=== PATIENT | female | born 1980 | race Two or more races ===

== ENCOUNTER 2019-08-10 06:17 | Day surgery (SDC) | payer MEDICAID ==
[2019-08-10] VITALS (12 sets, daily range): BP systolic 124–144; BP diastolic 59–80
[~2019-08-10] VITALS: Ht 167.6 cm; Wt 123.4 kg
[~2019-08-10 06:17] MED LIST: CLINDAMYCIN/D5W 900mg/50ml 50 ML IV ONE; NO HOME MEDS; famotidine 10mg tablet PO ONE; ringers solution, lacted 1,000 ML IV SCH
[2019-08-10] MEDS ORDERED: LIDOcaine 1% (10mg/ml) 2ml vial ONE (06:52)
[2019-08-10 07:38] LABS: BASOPHILS # (AUTO) 0.1 X10'3 (0-0.2); BASOPHILS % (AUTO) 0.7 % (0-1); EOSINOPHILS # (AUTO) 0.3 X10'3 (0-0.9); EOSINOPHILS % (AUTO) 3.4 % (0-6); LYMPHOCYTES # (AUTO) 2.8 X10'3 (1.1-4.8); LYMPHOCYTES % (AUTO) 35.8 % (21-51); MEAN CORPUSCULAR HEMOGLOBIN 29.1 PG (27.0-31.0); MEAN CORPUSCULAR HGB CONC 33.5 g/dL (33.0-36.5); MEAN CORPUSCULAR VOLUME 87.1 FL (78-98); MEAN PLATELET VOLUME 10.7 FL (7.4-10.4); MONOCYTES # (AUTO) 0.5 X10'3 (0-0.9); MONOCYTES % (AUTO) 6.2 % (2-12); NEUTROPHILS # (AUTO) 4.2 X10'3 (1.8-7.7); NEUTROPHILS % (AUTO) 53.9 % (42-75); PRE OP HEMATOCRIT 41.3 % (35.0-45.0); PRE OP HEMOGLOBIN 13.8 g/dL (12.0-16.0); PRE OP PLATELET COUNT 129 X10'3 (140-440); RED BLOOD COUNT 4.74 X10'6 (4.20-5.60); RED CELL DISTRIBUTION WIDTH 14.4 % (11.5-14.5)
[2019-08-10 08:02] LABS: HCG SERUM QL NEGATIVE
[2019-08-10 08:22] LABS: LARGE PLATELETS FEW; PLATELET ESTIMATE DECREASED
[2019-08-10] MEDS ORDERED: ringers solution, lacted 1,000 ML IV SCH (08:22)
[2019-08-10] MEDS ORDERED: ondansetron/PF 4mg/2ml inj IV PRN (08:25)
[2019-08-10] MEDS ORDERED: labetalol 20mg/4ml (5mg/ml) syringe IV PRN (08:25)
[2019-08-10] MEDS ORDERED: fentaNYL/PF 50MCG/1 ML 2ML syringe IV PRN ×2 (08:25)
[2019-08-10] MEDS ORDERED: hydrALAZINE 20mg/ml inj. IV PRN (08:25)
[2019-08-10] MEDS ORDERED: morphine 4 MG/ML inj SYRINge IV PRN (08:25)
[2019-08-10] MEDS ORDERED: MIDAZolam 1mg/ml 10ml vial IV PRN (08:35)
[2019-08-10 08:42] LABS: ALBUMIN 3.7 G/DL (3.4-5.0); ALBUMIN/GLOBULIN RATIO 1.1 (1.1-1.5); ALKALINE PHOSPHATASE 77 IU/L (46-116); BLOOD UREA NITROGEN 13 MG/DL (7-18); BUN/CREATININE RATIO 18.6 (6.6-38.0); CALCIUM 8.6 MG/DL (8.5-10.1); CHLORIDE 108 MMOL/L (99-107); PRE OP ALT 41 U/L (30-65); PRE OP ANION GAP 7 (8-16); PRE OP AST 23 U/L (10-37); PRE OP BILIRUB, TOTAL 0.5 MG/DL (0.0-1.0); PRE OP GLUCOSE 91 MG/DL (70-104); PRE OP SODIUM 141 MMOL/L (135-145); TOTAL CARBON DIOXIDE 25.7 MMOL/L (24-32); TOTAL PROTEIN 7.2 G/DL (6.4-8.2); eGFR > 90 ML/MIN
[2019-08-10] MEDS ORDERED: MIDAZolam 5mg/ml 2ml vial IV PRN (08:55)
[2019-08-10] MEDS ORDERED: BUPIVAcaine/PF 2.5 mg/ml (0.25%) 30ml vial ONE (09:30)
[2019-08-10] MEDS ORDERED: dexamethasone sod phosphate 10mg/ml inj ONE (09:36)
[2019-08-10] MEDS ORDERED: sevoflurane 250ml liquid IH ONE (09:36)
[2019-08-10] MEDS ORDERED: neostigmine methylsulfate 1 MG/ML 10ml vial ONE (09:39)
[2019-08-10] MEDS ORDERED: glycopyrrolate 0.2mg/ml inj ONE (09:39)
[2019-08-10] MEDS ORDERED: propofol inj 20 ML IV ONE ×4 (09:39→10:24)
[2019-08-10] MEDS ORDERED: LIDOcaine 2% (20mg/ml) 5ml vial ONE (09:39)
[2019-08-10] MEDS ORDERED: rocuronium 10mg/ml inj IV ONE (09:39)
[2019-08-10] MEDS ORDERED: ondansetron/PF 4mg/2ml inj ONE (09:40)
[2019-08-10] MEDS ORDERED: morphine 10mg/ml inj. ONE (09:44)
--- NOTE | 2019-08-10 10:42 | NUR ---
Received from OR via [facility], accompanied by Anesthesiologist DR TORIBIO and report given by Anesthesiologist. PT DROWSY, NO S/S OF DISTRESS/DISCOMFORT, LEFT UPPER ABDOMEN W/FOAM TAPE COVERING INCISION, CDI. Addendum: 08/10/19 at 1104 by Courtney Mathews RN Amended: Links added.
[2019-08-10] MEDS: morphine 4 MG/ML inj SYRINge IV PRN ×2 (11:07→11:29)
[2019-08-10] MEDS ORDERED: proCHLORperazine 10 MG/2 ml inj IV ONE (11:45)
--- NOTE | 2019-08-10 12:52 | NUR ---
D/C INSTRUCTIONS GIVEN AND GONE OVER W/PT AND PTS FAMILY WHOM VERBALIZE UNDERSTANDING, PT D/CD TO HOME VIA W/C TO PRIVATE VEHICLE W/O INCIDENT. Addendum: 08/10/19 at 1325 by Courtney Mathews RN Amended: Links added.
== END 2019-08-10 12:52 | disposition home or self-care (01) ==
LOC: PAS 06:17
PROVIDERS: ATTEND Surgery
DX: D17.1 Benign lipomatous neoplasm of skin and subcutaneous tissue of trunk (principal); F41.9 Anxiety disorder, unspecified; E66.01 Morbid (severe) obesity due to excess calories; Z68.41 Body mass index [BMI] 40.0-44.9, adult; Z88.0 Allergy status to penicillin; Z90.710 Acquired absence of both cervix and uterus; Z98.890 Other specified postprocedural states; Z90.49 Acquired absence of other specified parts of digestive tract; Z79.899 Other long term (current) drug therapy
CPT/HCPCS: 22901; 36415; 80053; 84703; 85025; J0780; J1100; J2001; J2250; J2270; J2405; J2704; J2710; J3490; A4215; A4618; A6449; A7000; J7120

== ENCOUNTER 2021-05-11 22:26 | Emergency (ER) | payer MEDICAID ==
[~2021-05-11] VITALS: Ht 167.6 cm; Wt 120.0 kg
[~2021-05-11 22:26] MED LIST changes: -CLINDAMYCIN/D5W 900mg/50ml 50 ML IV ONE; -famotidine 10mg tablet PO ONE; -ringers solution, lacted 1,000 ML IV SCH
[2021-05-12] MEDS ORDERED: normal saline 1000ml 1,000 ML IV ONE (00:05)
[2021-05-12] MEDS ORDERED: mag hydrox/Alum hydrox/simeth 30ml oral suspension PO ONE (00:05)
[2021-05-12 00:07] LABS: BASOPHILS # (AUTO) 0.2 X10'3 (0-0.2); BASOPHILS % (AUTO) 1.6 % (0-1); EOSINOPHILS # (AUTO) 0.5 X10'3 (0-0.9); EOSINOPHILS % (AUTO) 5.4 % (0-6); HEMOGLOBIN 14.3 g/dl (12.0-16.0); LYMPHOCYTES # (AUTO) 2.2 X10'3 (1.1-4.8); MEAN CORPUSCULAR HEMOGLOBIN 28.8 PG (27.0-31.0); MEAN CORPUSCULAR VOLUME 84.6 FL (78-98); MEAN PLATELET VOLUME 11.2 FL (7.4-10.4); MONOCYTES # (AUTO) 0.4 X10'3 (0-0.9); MONOCYTES % (AUTO) 3.7 % (2-12); NEUTROPHILS # (AUTO) 6.4 X10'3 (1.8-7.7); NEUTROPHILS % (AUTO) 66.3 % (42-75); PLATELET COUNT 114 X10'3 (140-440); RED BLOOD COUNT 4.96 X10'6 (4.20-5.60); RED CELL DISTRIBUTION WIDTH 14.7 % (11.5-14.5); WHITE BLOOD COUNT 9.7 X10'3 (4.5-11.0)
[2021-05-12 00:16] LABS: ALANINE AMINOTRANSFERASE 32 U/L (12-78); ALBUMIN 3.8 G/DL (3.4-5.0); ALKALINE PHOSPHATASE 78 IU/L (46-116); ANION GAP 5 (8-16); ASPARTATE AMINO TRANSFERASE 18 U/L (10-37); BILIRUBIN,TOTAL 0.9 MG/DL (0.1-1.0); BLOOD UREA NITROGEN 12 MG/DL (7-18); BUN/CREATININE RATIO 14.6 (6.6-38.0); CALCIUM 8.8 MG/DL (8.5-10.1); CHLORIDE 106 MMOL/L (99-107); CREATININE 0.82 MG/DL (0.40-0.90); GLUCOSE 93 MG/DL (70-104); LIPASE 77 U/L (73-393); POTASSIUM 3.8 MMOL/L (3.5-5.1); SODIUM 139 MMOL/L (135-145); TOTAL CARBON DIOXIDE 27.8 MMOL/L (24-32); TOTAL PROTEIN 7.5 G/DL (6.4-8.2); eGFR 76 ML/MIN
[2021-05-12] MEDS ORDERED: LIDOcaine Viscous 15ml cup MM ONE (00:20)
[2021-05-12] MEDS ORDERED: SUCR1TAB PO (01:07)
[2021-05-12] MEDS ORDERED: ONDA4TAB6 PO (01:07)
[2021-05-12] MEDS ORDERED: sucralfate 1 gm tablet PO ONE (01:10)
[2021-05-12] MEDS ORDERED: ondansetron 4mg rapidly disintigrating tab PO ONE (01:10)
[2021-05-12 01:13] LABS: URINE HCG NEGATIVE (NEG)
[2021-05-12 01:22] LABS: CLARITY,URINE CLEAR (Clear); COLOR,URINE YELLOW (Yellow); UA COLLECTION TYPE CLN CATCH MIDSTREAM
[2021-05-12 01:23] LABS: GLUCOSE, URINE NEGATIVE (Neg); KETONES,URINE NEGATIVE (Neg); LEUKOCYTE ESTERASE ,URINE NEGATIVE (Neg); NITRITES, URINE NEGATIVE (Neg); OCCULT BLOOD,URINE TRACE-INTACT (Neg); PH,URINE 6.5 (4.8-8.0); PROTEIN,URINE NEGATIVE (Neg); UROBILINOGEN,URINE 0.2 E.U/dL (0.2-1.0)
[2021-05-12 01:24] VITALS: BP 132/86
[2021-05-12 01:29] LABS: BACTERIA,URINE FEW /HPF (Neg); MUCUS STRANDS FEW /LPF (Neg); RBC,URINE 0-2 /HPF (0-2); SQUAMOUS EPITHELIAL CELL,UR FEW /LPF (FEW); WBC,URINE 0-4 /HPF (0-4)
== END 2021-05-12 01:25 | disposition home or self-care (01) ==
LOC: ER 22:26
DX: K29.00 Acute gastritis without bleeding (principal); R10.13 Epigastric pain; R11.10 Vomiting, unspecified; F32.9 Major depressive disorder, single episode, unspecified; Z88.0 Allergy status to penicillin; Z79.899 Other long term (current) drug therapy
CPT/HCPCS: 80053; 81001; 81025; 83690; 85025; 96360; 99283; J7030; 36415

== ENCOUNTER 2021-08-16 05:38 | Day surgery (SDC) | payer MEDICAID ==
[2021-08-16] VITALS (9 sets, daily range): BP systolic 115–138; BP diastolic 63–82
[~2021-08-16] VITALS: Ht 167.6 cm; Wt 112.8 kg
[~2021-08-16 05:38] MED LIST changes: +BIOTIN GUMMIES PO; -NO HOME MEDS; +famotidine 20mg tablet PO ONE; +ringers solution, lacted 1,000 ML IV SCH; +vancomycin 1,500 MG in NS 300ml IV soln IV ONE
[2021-08-16] MEDS ORDERED: levoFLOXACIN-Levaquin 500mg/D5 100 ML IV ONE (06:00)
[2021-08-16] MEDS ORDERED: methylPREDNISolone sod succ 125mg/2ml vial ONE (06:58)
[2021-08-16] MEDS ORDERED: BUPIVAcaine 0.5% inj/PF 30 ML ONE (06:58)
[2021-08-16] MEDS ORDERED: fentaNYL/PF 50MCG/1 ML 2ML syringe ONE (07:25)
[2021-08-16] MEDS ORDERED: MIDAZolam 1 MG/ML 5ML VIAL ONE ×2 (07:25→07:39)
[2021-08-16] MEDS ORDERED: propofol inj 20 ML IV ONE (07:38)
[2021-08-16] MEDS ORDERED: ketorolac trometh. 30mg/ml inj. ONE (07:44)
[2021-08-16] MEDS: LIDOcaine 1% 30ml preserv. free vial ONE ×2 (07:48→08:00)
--- NOTE | 2021-08-16 08:16 | NUR ---
Received from OR via geovani, accompanied by Anesthesiologist Ascencion and report given by Anesthesiolgist. Pt alert and responsive, O2 sats greater than 90% on 3L NC. Dressing and splint to left wrist CDI ice pack in place, good cap refill to fingers. No pain, can move fingers. All VS WNL. 22G right forearm LR at 100cc/hr.
[2021-08-16] MEDS ORDERED: ondansetron/PF 4mg/2ml inj IV PRN ×2 (09:25→10:05)
--- NOTE | 2021-08-16 09:46 | NUR ---
Pt discharged to home via wheelchair into car without incident, IV dc'd all belongings returned to patient. No pain, DC instructions given to her and S/O all questions answered. Pt alert and responsive, all belongings returned to her. Ice pack and dc instructions in bag. Pt has pain med prescription at home to be filled upon arrival. Dressing CDI.
[2021-08-16] MEDS ORDERED: morphine 2 MG/ML inj. syringe IV PRN (10:05)
[2021-08-16] MEDS ORDERED: proCHLORperazine 10 MG/2 ml inj IV PRN (10:05)
[2021-08-16] MEDS ORDERED: morphine 4 MG/ML inj SYRINge IV PRN (10:05)
[2021-08-16] MEDS ORDERED: ringers solution, lacted 1,000 ML IV SCH (10:05)
[2021-08-16] MEDS ORDERED: meperidine/PF 25mg/ml syringe IV PRN ×3 (10:05)
== END 2021-08-16 09:46 | disposition home or self-care (01) ==
LOC: PAS 05:38
PROVIDERS: ATTEND Orthopaedic Surgery
DX: G56.02 Carpal tunnel syndrome, left upper limb (principal); G56.22 Lesion of ulnar nerve, left upper limb; E66.01 Morbid (severe) obesity due to excess calories; Z68.41 Body mass index [BMI] 40.0-44.9, adult; Z88.0 Allergy status to penicillin; Z98.890 Other specified postprocedural states; Z79.899 Other long term (current) drug therapy
CPT/HCPCS: 64719; 64721; 82948; J1885; J1956; J2250; J2405; J2704; J2930; J3010; J3370; J3490; J7030; J7040; J7120; S0020; Z7506; Z7512; A4215; A4565; A4618; A6250; A6455; A7000